=== PATIENT | female | born 2000 | race Caucasian/White ===

== ENCOUNTER 2023-01-22 14:02 | Inpatient (IN) | payer BC ==
[2023-01-22] MEDS ORDERED: Ketorolac Tromethamine 30 MG/ML VIAL ONE (14:36)
[2023-01-22] MEDS ORDERED: Ondansetron PF 4 MG/2 ML Vial ONE ×2 (14:42→21:54)
[2023-01-22] MEDS ORDERED: Morphine 4 MG/ML VIAL ONE (15:53)
[2023-01-22] MEDS ORDERED: Morphine 2 MG/ML VIAL ONE ×2 (18:09→20:27)
[2023-01-22] MEDS ORDERED: Acetaminophen 325 MG TAB PO PRN (18:23)
[2023-01-22] MEDS ORDERED: methylPREDNISolone Sod Succ 40 MG VIAL ONE (20:27)
[2023-01-22] MEDS: methylPREDNISolone Sod Succ 40 MG VIAL IVP SCH (20:30)
[2023-01-22] MEDS: Ondansetron PF 4 MG/2 ML Vial IVP PRN (22:18)
[2023-01-22] MEDS ORDERED: HYDROcodone/Acetaminophen 10/325 mg Tablet ONE (22:22)
[2023-01-22] MEDS: HYDROcodone/Acetaminophen 10/325 mg Tablet PO PRN (22:26)
[2023-01-23] MEDS ORDERED: HYDROcodone/Acetaminophen 10/325 mg Tablet ONE ×4 (02:40→10:33)
[2023-01-23] MEDS: HYDROcodone/Acetaminophen 10/325 mg Tablet PO PRN ×4 (02:43→22:14)
[2023-01-23 03:53] VITALS: BMI 21.2
[2023-01-23] MEDS ORDERED: Ondansetron PF 4 MG/2 ML Vial ONE ×2 (04:29→09:45)
[2023-01-23] MEDS: Ondansetron PF 4 MG/2 ML Vial IVP PRN ×3 (04:33→18:21)
[2023-01-23] MEDS ORDERED: Ketorolac Tromethamine 30 MG/ML VIAL ONE (09:15)
[2023-01-23] MEDS ORDERED: Ketorolac Tromethamine 30 MG/ML VIAL IVP SCH (10:15)
[2023-01-23 12:28] LABS: SARS-CoV-2 NAA Rapid Test Not Detected (NotDetected)
[2023-01-23] MEDS ORDERED: Promethazine HCl 25 MG in Sodium Chloride 0.9% 50 ML IVPB SCH (16:00)
[2023-01-23] MEDS ORDERED: Polyethylene Glycol 3350 17 GM Packet PO SCH (16:00)
[2023-01-23] MEDS: Morphine 4 MG/ML VIAL SLOW IVP PRN ×2 (16:58→23:33)
[2023-01-23] MEDS ORDERED: Promethazine HCl 25 MG in Sodium Chloride 0.9% 50 ML IVPB PRN (17:41)
[2023-01-23] MEDS: methylPREDNISolone Sod Succ 40 MG VIAL IVP SCH (18:21)
[2023-01-23] MEDS: Ketorolac Tromethamine 30 MG/ML VIAL IVP PRN (19:15)
[2023-01-23] MEDS ORDERED: diphenhydrAMINE 25 MG CAP PO SCH (19:30)
[2023-01-24] MEDS: Ketorolac Tromethamine 30 MG/ML VIAL IVP PRN ×2 (04:37→16:46)
[2023-01-24] MEDS: HYDROcodone/Acetaminophen 10/325 mg Tablet PO PRN ×4 (04:37→20:51)
[2023-01-24] MEDS: Ondansetron PF 4 MG/2 ML Vial IVP PRN (04:42)
[2023-01-24] MEDS ORDERED: DROSPIRENONE PO SCH (09:00)
[2023-01-24] MEDS ORDERED: ETHINYL ESTRADIOL PO SCH (09:00)
[2023-01-24] MEDS ORDERED: [UNRECOGNIZED DRUG - OTHER] PO SCH (09:00)
[2023-01-24] MEDS: Sertraline 100 MG TAB PO SCH (09:42)
[2023-01-24 10:34] LABS: #Lymphocytes 3.3 thou/uL (1.20-3.40); #Neutrophils 9.2 thou/uL (1.40-6.50); %Basophils 0.2 % (0.0-1.0); %Eosinophils 0.2 % (0.0-10.0); %Lymphocytes 24.3 % (28.0-48.0); %Monocytes 7.3 % (0.0-4.0); Hemoglobin 13.3 g/dL (12.0-16.0); Mean Corpuscular HGB CONC 33.6 g/dL (32.0-36.0); Mean Corpuscular Hemoglobin 30.8 pg (25.0-35.0); Mean Corpuscular Volume 91.6 fl (78.0-98.0); Mean Platelet Volume 10.1 fL (7.4-10.4); Platelet Count 150 10x3/uL (130-400); RBC Distribution Width 11.1 % (11.5-14.5); White Blood Cell (WBC) Count 13.5 10x3/uL (4.8-10.8)
[2023-01-24 10:52] LABS: ALT (SGPT) 10 U/L (8-55); AST (SGOT) 15 U/L (5-34); Albumin 3.7 g/dL (3.5-5.0); Alkaline Phosphatase 43 U/L (40-100); Anion Gap 14 mmol/L (10-20); BUN (Urea Nitrogen) 14 mg/dL (7.0-18.7); Bilirubin, Total 0.3 mg/dL (0.2-1.2); Calc. Creatinine Clearance 107 mL/min (70-130); Calcium 9.2 mg/dL (7.8-10.44); Carbon Dioxide 18 mmol/L (22-29); Chloride 110 mmol/L (98-107); Estimated GFR 119; Globulin 2.6 g/dL (2.4-3.5); Glucose 75 mg/dL (70-105); Potassium 4.2 mmol/L (3.5-5.1); Protein, Total 6.3 g/dL (6.0-8.3); Sodium 138 mmol/L (136-145)
[2023-01-24] MEDS: Morphine 4 MG/ML VIAL SLOW IVP PRN ×2 (12:13→21:56)
[2023-01-24 12:47] LABS: BHCG - Serum Negative (NEGATIVE); Pregs Control Background? CLEAR/WHITE (CLR/WHITE); Pregs Control Bar Appear? YES (CONTROL BAR)
[2023-01-25] MEDS: HYDROcodone/Acetaminophen 10/325 mg Tablet PO PRN ×3 (01:47→19:27)
[2023-01-25] MEDS: Ondansetron PF 4 MG/2 ML Vial IVP PRN ×2 (05:43→09:29)
[2023-01-25] MEDS: Ketorolac Tromethamine 30 MG/ML VIAL IVP PRN ×2 (05:57→16:08)
[2023-01-25] MEDS: Sertraline 100 MG TAB PO SCH (07:54)
[2023-01-25] MEDS ORDERED: Polyethylene Glycol 3350 17 GM Packet PO PRN (10:14)
[2023-01-25] MEDS ORDERED: Polyethylene Glycol 3350 17 GM Packet PO SCH (10:15)
[2023-01-25] MEDS ORDERED: Lidocaine 4% Patch TD SCH (18:15)
[2023-01-25] MEDS: Morphine 4 MG/ML VIAL SLOW IVP PRN (22:21)
[2023-01-26] MEDS: HYDROcodone/Acetaminophen 10/325 mg Tablet PO PRN (04:36)
[2023-01-26] MEDS ORDERED: Transdermal Patch Removal TOP SCH (06:00)
[2023-01-26] MEDS: Ondansetron PF 4 MG/2 ML Vial IVP PRN (06:26)
[2023-01-26 07:18] VITALS: BP 93/57; TEMP 98.4
[2023-01-26 07:32] LABS: #Eosinphils 0.1 thou/uL (0.0-0.7); #Lymphocytes 3.2 thou/uL (1.20-3.40); #Monocytes 0.7 thou/uL (0.11-0.59); %Basophils 0.3 % (0.0-1.0); %Lymphocytes 40.2 % (28.0-48.0); %Monocytes 8.3 % (0.0-4.0); %Neutrophils 50.2 % (31.0-61.0); Hemoglobin 12.3 g/dL (12.0-16.0); Mean Corpuscular HGB CONC 34.2 g/dL (32.0-36.0); Mean Corpuscular Hemoglobin 30.9 pg (25.0-35.0); Mean Corpuscular Volume 90.2 fl (78.0-98.0); Mean Platelet Volume 9.8 fL (7.4-10.4); Platelet Count 175 10x3/uL (130-400); RBC Distribution Width 10.9 % (11.5-14.5)
[2023-01-26 07:47] LABS: Anion Gap 13 mmol/L (10-20); BUN (Urea Nitrogen) 11 mg/dL (7.0-18.7); Calc. Creatinine Clearance 104 mL/min (70-130); Calcium 8.8 mg/dL (7.8-10.44); Carbon Dioxide 24 mmol/L (22-29); Chloride 105 mmol/L (98-107); Estimated GFR 115; Glucose 73 mg/dL (70-105); Potassium 4.3 mmol/L (3.5-5.1); Sodium 138 mmol/L (136-145)
[2023-01-26] MEDS: Sertraline 100 MG TAB PO SCH (07:58)
[2023-01-26] MEDS: Ketorolac Tromethamine 30 MG/ML VIAL IVP PRN (10:01)
== END 2023-01-26 12:06 | disposition home or self-care (01) | DRG 552 ==
LOC: ERS 14:02 → ERHOLD 18:05 → T4-B 01-23 12:30 → OBSVTOIN 01-24 10:20
PROVIDERS: ADMIT Internal Medicine; ATTEND Internal Medicine
DX: M51.16 Intervertebral disc disorders with radiculopathy, lumbar region (principal); Z20.822 Contact with and (suspected) exposure to COVID-19; Z79.899 Other long term (current) drug therapy
CPT/HCPCS: 36415; 72100; 72148; 80048; 80053; 84703; 85025; 96374; 96375; 96376; G0378; J1885; J2270; J2272; J2405; J2550; J2920; U0002